=== PATIENT | female | born 1990 | race Caucasian/White ===

== ENCOUNTER 2019-11-12 17:49 | Emergency (ER) | payer MEDICAID, OTHER ==
[~2019-11-12] VITALS: Ht 180.3 cm; Wt 108.0 kg
[2019-11-12 18:01] VITALS: BP 142/98
[2019-11-12] MEDS ORDERED: KETOROLAC TROMETH 60MG/2ML VIAL IM ONE (19:30)
[2019-11-12] MEDS ORDERED: methylPREDNISolone SOD SUCC 125 MG/2 ML VL IM ONE (19:30)
== END 2019-11-12 20:13 | disposition home or self-care (01) ==
LOC: ER 17:49
DX: J40 Bronchitis, not specified as acute or chronic (principal); J06.9 Acute upper respiratory infection, unspecified
CPT/HCPCS: 71046; 81025; 96372; 99284; J1885; J2930

== ENCOUNTER 2020-06-07 18:12 | Emergency (ER) | payer MEDICAID ==
[~2020-06-07] VITALS: Ht 180.3 cm; Wt 113.4 kg
[2020-06-07] MEDS ORDERED: GLUCAGON HYDROCHLORIDE (RDNA) 1 MG VIAL IV ONE (19:45)
[2020-06-07 22:00] VITALS: BP 122/68
== END 2020-06-07 22:50 | disposition home or self-care (01) ==
LOC: ER 18:12
DX: K31.84 Gastroparesis (principal); J45.909 Unspecified asthma, uncomplicated
CPT/HCPCS: 70490; 71250

== ENCOUNTER 2021-12-14 14:58 | Emergency (ER) | payer MEDICAID, OTHER ==
[~2021-12-14] VITALS: Ht 180.3 cm; Wt 99.8 kg
[2021-12-14 16:28] LABS: Basophils # (auto) 0.1 10 ^3/uL (0-0.2); Basophils % (auto) 1.1 % (0.0-2.0); Eosinophils # (auto) 0.7 10 ^3/uL (0-0.8); Hematocrit 37.4 % (36.0-46.0); Hemoglobin 12.5 g/dL (12.2-16.2); Lymphocytes # (auto) 1.4 10 ^3/uL (0.4-5.4); Lymphocytes % (auto) 11.8 % (10.0-50.0); Mean Corpuscular Hemoglobin 27.1 pg (28.0-32.0); Mean Corpuscular Hgb Conc. 33.5 g/dL (32.0-36.0); Mean Corpuscular Volume 80.7 fL (80.0-100.0); Monocytes # (auto) 0.8 10 ^3/uL (0-1.3); Monocytes % (auto) 6.6 % (0.0-12.0); Neutrophils # (auto) 8.6 10 ^3/uL (1.6-8.6); Neutrophils % (auto) 74.5 % (37.0-80.0); Nucleated Red Blood Cells % 0.1 %; Red Blood Cells 4.64 10^6/uL (4.0-5.20); Red Cell Distribution Width 14.7 % (11.8-14.3); White Blood Cell 11.5 10^3/uL (4.4-10.8)
[2021-12-14 16:45] LABS: Albumin 3.8 g/dL (3.4-5.0); BUN/Creatinine Ratio 16.4; Calcium 8.5 mg/dL (8.5-10.1); Potassium 3.9 mmol/L (3.5-5.1)
[2021-12-14 16:48] LABS: Bilirubin, Total 0.4 mg/dL (0.2-1.0); Total Protein 7.7 g/dL (6.4-8.2)
[2021-12-14 19:03] LABS: Urine Bacteria NONE SEEN /hpf (None Seen); Urine Blood Negative /uL (Negative); Urine Mucus FEW (None Seen); Urine Specific Gravity 1.029 (1.001-1.035); Urine WBC 1 /hpf (0 - 5)
[2021-12-15] VITALS: BP 125/72
[2021-12-15] MEDS ORDERED: PERCOT PO (01:43)
== END 2021-12-15 01:53 | disposition home or self-care (01) ==
LOC: ER 15:06
DX: K80.20 Calculus of gallbladder without cholecystitis without obstruction (principal)
CPT/HCPCS: 36415; 71045; 74176; 80053; 81001; 83690; 85025

== ENCOUNTER 2022-03-01 11:19 | Emergency (ER) | payer OTHER ==
[~2022-03-01] VITALS: Ht 180.3 cm; Wt 95.5 kg
[~2022-03-01 11:19] MED LIST: PERCOT PO
[2022-03-01 11:31] VITALS: BP 145/88
[2022-03-01] MEDS ORDERED: KETOROLAC TROMETH 60MG/2ML VIAL IM ONE (12:00)
[2022-03-01] MEDS ORDERED: METH750T22 PO (12:41)
[2022-03-01] MEDS ORDERED: IBUP800T27 PO (12:41)
== END 2022-03-01 12:45 | disposition home or self-care (01) ==
LOC: ER 11:31
DX: S16.1XXA Strain of muscle, fascia and tendon at neck level, initial encounter (principal); J45.909 Unspecified asthma, uncomplicated; Z79.1 Long term (current) use of non-steroidal anti-inflammatories (NSAID); Z79.899 Other long term (current) drug therapy; X50.1XXA Overexertion from prolonged static or awkward postures, initial encounter; Y93.89 Activity, other specified; Y92.89 Other specified places as the place of occurrence of the external cause; Y99.8 Other external cause status
CPT/HCPCS: 72040; 96372; 99283; J1885

== ENCOUNTER 2022-08-15 12:24 | Emergency (ER) | payer OTHER ==
[~2022-08-15] VITALS: Ht 180.3 cm; Wt 98.0 kg
[~2022-08-15 12:24] MED LIST changes: +IBUP800T27 PO; +METH750T22 PO
[2022-08-15 13:07] LABS: Basophils # (auto) 0.1 10 ^3/uL (0-0.2); Basophils % (auto) 0.8 % (0.0-2.0); Eosinophils # (auto) 0.5 10 ^3/uL (0-0.8); Eosinophils % (auto) 7.1 % (0.0-7.0); Hemoglobin 13.7 g/dL (12.2-16.2); Lymphocytes # (auto) 0.8 10 ^3/uL (0.4-5.4); Lymphocytes % (auto) 10.6 % (10.0-50.0); Mean Corpuscular Hemoglobin 26.9 pg (28.0-32.0); Mean Corpuscular Hgb Conc. 33.4 g/dL (32.0-36.0); Mean Corpuscular Volume 80.7 fL (80.0-100.0); Monocytes # (auto) 0.9 10 ^3/uL (0-1.3); Monocytes % (auto) 11.2 % (0.0-12.0); Neutrophils # (auto) 5.3 10 ^3/uL (1.6-8.6); Neutrophils % (auto) 70.3 % (37.0-80.0); Nucleated Red Blood Cells % 0.4 %; Red Blood Cells 5.08 10^6/uL (4.0-5.20); Red Cell Distribution Width 15.1 % (11.8-14.3); White Blood Cell 7.6 10^3/uL (4.4-10.8)
[2022-08-15 13:18] LABS: Albumin 4.1 g/dL (3.4-5.0); Calcium 8.7 mg/dL (8.5-10.1); Potassium 3.6 mmol/L (3.5-5.1)
[2022-08-15 13:23] LABS: BUN/Creatinine Ratio 7.5; Bilirubin, Total 0.6 mg/dL (0.2-1.0); Total Protein 8.3 g/dL (6.4-8.2)
[2022-08-15] MEDS ORDERED: ALBUTEROL MEDNEB 2.5 mg/3ml NEB ONE ×2 (13:44→13:47)
[2022-08-15] MEDS: ALBUTEROL SULF 2.5 MG/0.5ML(0.5%) NEB SOLN NEB ONE ×2 (13:45→13:54)
[2022-08-15] MEDS: IPRATROPIUM BROM 0.5 MG/2.5ML INH SOL NEB ONE ×2 (13:45→13:54)
[2022-08-15] MEDS: methylPREDNISolone SOD SUCC 125 MG/2 ML VL IM ONE ×2 (14:19→14:22)
[2022-08-15] MEDS ORDERED: PRED20TA2 PO (14:29)
[2022-08-15] MEDS ORDERED: ALBU108A5 IN (14:29)
[2022-08-15 14:39] VITALS: BP 152/99
== END 2022-08-15 14:41 | disposition home or self-care (01) ==
LOC: ER 12:24
DX: J45.901 Unspecified asthma with (acute) exacerbation (principal)
CPT/HCPCS: 36415; 71045; 80053; 83880; 85025; 85379; 94640; 96372; 99284; J2930; J7644

== ENCOUNTER 2022-08-24 17:57 | Emergency (ER) | payer OTHER ==
[~2022-08-24] VITALS: Ht 180.3 cm; Wt 100.8 kg
[~2022-08-24 17:57] MED LIST changes: +ALBU108A5 IN; +PRED20TA2 PO
[2022-08-24 18:02] VITALS: BP 124/88
[2022-08-24] MEDS ORDERED: DEXT1SYP9 PO (22:48)
== END 2022-08-24 23:04 | disposition home or self-care (01) ==
LOC: ER 17:58
DX: B34.9 Viral infection, unspecified (principal); J04.0 Acute laryngitis